=== PATIENT | male | born 1960 | race Caucasian/White ===

== ENCOUNTER 2022-01-04 21:21 | Inpatient (IN) | payer BC ==
[~2022-01-04] VITALS: Ht 185.4 cm; Wt 82.6 kg
--- NOTE | 2022-01-04 21:50 | NUR ---
Patient is a 61-year-old male [id number] with past medical history of CHF who states that he has not been taking his medication for a couple of years due to losing his insurance and he has been having progressively worsening shortness of breath as well as leg swelling for the last 2 weeks, left worse than the right, and came in because at this time he is unable to walk, he does admit to some dizziness when standing up and some intermittent cough without phlegm, denies any fevers, chest pain, palpitations, nausea, vomiting, abdominal pain. Patient is AAO x4, with noticeable shortness of breath, saturation at 95% on 3 lpm via nc. Patient attached to monitor and pulse ox. Will continue to monitor
[2022-01-04] MEDS ORDERED: FUROSEMIDE 40 MG/4 ML VIAL IV ONE (22:00)
[2022-01-04] MEDS ORDERED: FUROSEMIDE 40 MG/4 ML VIAL ONE (22:01)
--- NOTE | 2022-01-04 22:25 | NUR ---
FRONT DESK ADMINISTRATOR AT BEDSIDE FOR CXR
--- NOTE | 2022-01-04 22:40 | NUR ---
TECH AT BEDSIDE FOR VENOUS DOPPLER OF BLE
--- NOTE | 2022-01-04 22:45 | NUR ---
IV LINE ESTABLISHED AT LAC 20G, BLOOD DRAWN AND SENT TO LAB
[2022-01-04 23:17] LABS: BASOPHILS # (AUTO) 0.1 K/uL (0.0-0.2); BASOPHILS % (AUTO) 0.4 % (0.0-2.0); HEMATOCRIT 27 % (39-51); HEMOGLOBIN 8.2 g/dL (13.5-17.5); LYMPHOCYTES # (AUTO) 1.6 K/uL (0.8-4.8); LYMPHOCYTES % (AUTO) 11.2 % (20.0-44.0); MEAN CORPUSCULAR HGB CONC 30 g/dl (31.0-36.0); MEAN CORPUSCULAR VOLUME 86 fL (80-96); MONOCYTES # (AUTO) 0.4 K/uL (0.1-1.30); NEUTROPHILS % (AUTO) 85.4 % (43.0-81.0); PLATELET COUNT (AUTO) 310 K/uL (150-450); RED BLOOD CELL COUNT(AUTO) 3.16 MIL/uL (4.5-6.0)
[2022-01-04 23:52] LABS: CALCIUM, SERUM 8.5 mg/dL (8.5-10.1); CREATININE 2.5 mg/dL (0.6-1.3)
[2022-01-05] VITALS (12 sets, daily range): BP systolic 60–108; BP diastolic 40–59
[2022-01-05] MEDS ORDERED: ONDANSETRON HCL/PF 4 MG/2 ML VIAL IVP PRN
[2022-01-05] MEDS ORDERED: ACETAMINOPHEN 325 MG TABLET PO PRN
[2022-01-05] MEDS ORDERED: ZOLPIDEM TARTRATE 5 MG TABLET PO PRN
[2022-01-05] MEDS ORDERED: Z GUARD REMEDY 4 OZ OINT TP PRN
[2022-01-05] MEDS ORDERED: MAG HYDROX/AL HYDROX/SIMETH 30 ML UDC PO PRN
[2022-01-05] MEDS ORDERED: MAGNESIUM HYDROXIDE 30 ML UDC PO PRN
--- NOTE | 2022-01-05 00:03 | NUR ---
COVID ANTIGEN SWAB COLLECTED AND SENT TO LAB
[2022-01-05 00:05] LABS: ALBUMIN 3.1 g/dL (3.4-5.0); BILIRUBIN,DIRECT 0.6 mg/dL (0.0-0.2); BILIRUBIN,TOTAL 1.6 mg/dL (0.2-1.0); TOTAL PROTEIN, SERUM 7.1 g/dL (6.4-8.2)
[2022-01-05 05:04] LABS: BASOPHILS # (AUTO) 0.1 K/uL (0.0-0.2); BASOPHILS % (AUTO) 1.2 % (0.0-2.0); HEMATOCRIT 25 % (39-51); HEMOGLOBIN 7.8 g/dL (13.5-17.5); LYMPHOCYTES # (AUTO) 1.6 K/uL (0.8-4.8); LYMPHOCYTES % (AUTO) 13.8 % (20.0-44.0); MEAN CORPUSCULAR HGB CONC 31 g/dl (31.0-36.0); MEAN CORPUSCULAR VOLUME 84 fL (80-96); MONOCYTES # (AUTO) 0.3 K/uL (0.1-1.30); MONOCYTES % (AUTO) 2.7 % (2.0-12.0); NEUTROPHILS # (AUTO) 9.7 K/uL (1.8-8.9); NEUTROPHILS % (AUTO) 82.3 % (43.0-81.0); PLATELET COUNT (AUTO) 258 K/uL (150-450); RED BLOOD CELL COUNT(AUTO) 2.95 MIL/uL (4.5-6.0); WHITE BLOOD COUNT (AUTO) 11.7 K/uL (4.3-11.0)
[2022-01-05 05:39] LABS: ALBUMIN 2.8 g/dL (3.4-5.0); BILIRUBIN,DIRECT 0.5 mg/dL (0.0-0.2); BILIRUBIN,TOTAL 1.4 mg/dL (0.2-1.0); CALCIUM, SERUM 8.2 mg/dL (8.5-10.1); CREATININE 2.4 mg/dL (0.6-1.3); MAGNESIUM 2.7 mg/dL (1.8-2.4); PHOSPHORUS 7.5 mg/dL (2.5-4.9); POTASSIUM 4.2 mmol/L (3.5-5.1); TOTAL PROTEIN, SERUM 6.6 g/dL (6.4-8.2)
--- NOTE | 2022-01-05 07:01 | NUR ---
MRSA SWAB COLLECTED AND SENT TO LAB
[2022-01-05 07:12] LABS: THYROID STIMULATING HORMONE 2.956 uIU/mL (0.358-3.74)
[2022-01-05] MEDS ORDERED: PANTOPRAZOLE 40 MG TABLET.DR PO SCH (07:30)
--- NOTE | 2022-01-05 08:17 | NUR ---
[facility] BED 114-1
--- NOTE | 2022-01-05 08:28 | NUR ---
MATRIX INSPECTOR AT BEDSIDE FOR ULTRASOUND.
[2022-01-05] MEDS ORDERED: PANTOPRAZOLE 40 MG TABLET.DR PO ONE (08:33)
[2022-01-05] MEDS ORDERED: FUROSEMIDE 40 MG/4 ML VIAL ONE (08:38)
--- NOTE | 2022-01-05 08:53 | NUR ---
REPORT GIVEN TO AURELIO NASCIMENTO OF MS UNIT
[2022-01-05] MEDS ORDERED: FUROSEMIDE 40 MG/4 ML VIAL IV SCH (09:00)
--- NOTE | 2022-01-05 09:21 | NUR ---
PATIENT TRANSFERRED TO TELE UNIT IN STABLE CONDITION
--- NOTE | 2022-01-05 09:27 | NUR ---
KAYLEE EASTMAN ORDERED BLADDER SCAN..ENDORSED TO SOON RN AWARE OF MS UNIT.
--- NOTE | 2022-01-05 09:37 | NUR ---
BLADDER SCAN SHOWS 315 DR. Lazaro was notified and waiting for returning call back
--- NOTE | 2022-01-05 09:40 | NUR ---
teletype telegrapher note received patient from er with dx acute chf and lt leg cellulitis , alert oriented , admitted under care dr tejas bueno , placed on tele monitor , vs taken , per dr Tejas Bueno placed Corey catch due to more then 300 ml of urine retention noted, body check done , hospital,orientation done, all needs attended , c\o leg pain Tylenol po given, will cont to monitor
--- NOTE | 2022-01-05 11:57 | NUR ---
telecommunications professional note pt not done due to patent condition
[2022-01-05] MEDS ORDERED: MORPHINE SULFATE INJ 4 MG/ML DISP.SYRIN IV PRN (13:00)
--- NOTE | 2022-01-05 13:13 | NUR ---
emergency telecommunications dispatcher note c\o severe pain on lt leg 9\10 scale bp 111/68 saturation 92% morphine 4mg ivp given as ordered, will f\u
--- NOTE | 2022-01-05 13:15 | NUR ---
telephoto engineer note abg done per order dr elida Trivedi,
--- NOTE | 2022-01-05 13:45 | NUR ---
telescope maintenance note bolus 500 ml given as ordered by roopa Trivedi ,dr elida Trivedi notified that saturating 77-84% and patient placed on 15 nonbreather mask
[2022-01-05] MEDS ORDERED: IV NS 0.9% 500 ML IV ONE (14:30)
[2022-01-05] MEDS ORDERED: IV LR 1000 ML 1,000 ML IV PRN (14:30)
[2022-01-05] MEDS ORDERED: VANCOMYCIN HCL 1 GM in IV D5W 260 ML IV ONE (14:30)
--- NOTE | 2022-01-05 14:34 | NUR ---
television newscast director note result of abg reported to dr elida Trivedi , ordered ct abdomen , taken to ct abdomen
--- NOTE | 2022-01-05 14:35 | NUR ---
telehealth coordinator note awaiting for icu bed per dr starr Trivedi need transfer to icu
[2022-01-05] MEDS ORDERED: VANCOMYCIN 1 GM in IV D5W 250ml IV SCH (15:00)
[2022-01-05] MEDS ORDERED: ZOSYN IVPB 2.25 G in IV D5W 50ml IV SCH (16:00)
--- NOTE | 2022-01-05 16:05 | NUR ---
telescope repairer note mid line placed as ordered by Herson hudson gas system operator on rt upper arm ,cont on ivf as ordered
--- NOTE | 2022-01-05 16:37 | NUR ---
LAB CALLED IN LACTIC ACID IS 7.5 DR PAGE WAS NOTIFIED AND NORMAL SALINE 500ML BOLUS TO BE GIVEN
[2022-01-05] MEDS ORDERED: IV NS 0.9% 1,000 ML IV ONE ×2 (17:00→19:30)
--- NOTE | 2022-01-05 17:06 | NUR ---
telesales manager note per order Tejas Trivedi dnp giving bolus 1000 ml ,aware that lactic acid 7.5 Addendum: 01/05/22 at 1718 by ALONDRA WILKINSON RN correction per charge nurse patrick ortiz to telesales manager [address] tejas clements , will f\u
--- NOTE | 2022-01-05 17:37 | NUR ---
telern note called to dr elida bueno notified that bp 71\44 stated that need transfer to icu with Levophed order
[2022-01-05] MEDS ORDERED: PIPERACILLIN /TAZOBACTAM 3.375 G in IV D5W 50 ML IV SCH (18:00)
[2022-01-05] MEDS ORDERED: NOREPINEPHRINE 8 MG in IV NS 0.9% 242 ML IV PRN ×4 (18:00)
--- NOTE | 2022-01-05 18:00 | NUR ---
telephone answering service operator note transferred to icu as ordered by asls protocol , by kasia report given at bedside to amanda hudson
--- NOTE | 2022-01-05 18:00 | NUR ---
RN NOTES RECEIVED PT ON BED, FROM [facility], PT IS A/O X4, ON NONREBREATHER MASK , O2 SAT IN 70'S , SBP IN 70'S, IV SITES CLEAN ,DRY AND INTACT , LEVO DRIP ORDERED.
[2022-01-05 18:23] LABS: BASOPHILS # (AUTO) 0.2 K/uL (0.0-0.2); BASOPHILS % (AUTO) 1.1 % (0.0-2.0); EOSINOPHILS % (AUTO) 0.1 % (0.0-6.0); HEMATOCRIT 26 % (39-51); HEMOGLOBIN 7.7 g/dL (13.5-17.5); LYMPHOCYTES % (AUTO) 10.3 % (20.0-44.0); MEAN CORPUSCULAR HGB CONC 30 g/dl (31.0-36.0); MEAN CORPUSCULAR VOLUME 86 fL (80-96); MONOCYTES # (AUTO) 0.7 K/uL (0.1-1.30); MONOCYTES % (AUTO) 3.5 % (2.0-12.0); NEUTROPHILS # (AUTO) 16.6 K/uL (1.8-8.9); PLATELET COUNT (AUTO) 253 K/uL (150-450); WHITE BLOOD COUNT (AUTO) 19.5 K/uL (4.3-11.0)
[2022-01-05 18:28] LABS: CALCIUM, SERUM 7.2 mg/dL (8.5-10.1); POTASSIUM 4.9 mmol/L (3.5-5.1)
--- NOTE | 2022-01-05 18:30 | NUR ---
RN NOTES SBP IN 120'S, PT IS A/Ox4, STAT ABG ORDERED PER MD ORDER .
[2022-01-05 19:15] LABS: LYMPHOCYTES % (MANUAL) 9 % (16-48); MONOCYTES % (MANUAL) 5 % (0-11.0); NEUTROPHILS % (MANUAL) 86 (42-76)
--- NOTE | 2022-01-05 19:30 | NUR ---
PROBATION OFFICER NOTE RECEIVED PT IN BED AWAKE. A/O X 2-3. ON NRB MASK O2 15 L AND O2 SAT 95%. KEPT HOB ELEVATED. NO DISTRESS OR DISCOMFORT NOTED. NO S/S OF PAIN NOTED. ON TELE SR. F/C INTACT AND PATENT 0 OUTPUT NOTED AT THIS TIME KEPT BILATERAL LOWER LEGS ELEVATED DUE TO SWELLING. LAC IVF INFUSING LR AT 125 ML/HR. PT IS ALSO GETTING LEVA AT 0.2 MCG/KG/MIN. NO S/S OF INFILTRATION NOTED. KEPT HIM DRY AND CLEAN. ALL NEEDS ATTENDED. CONTINUE TO MONITOR HIM.
[2022-01-05] MEDS ORDERED: IOHEXOL-350 100 ML VIAL IV ONE (19:49)
--- NOTE | 2022-01-05 19:50 | NUR ---
DRY CHAIN PULLER NOTE DR HAIRSTON WANTS PT TO GO FOR CT ANGIO CONSENT OBTAINED FOR THE PT. PT WENT DOWN WITH RT.
[2022-01-05] MEDS ORDERED: IV NS 0.9% 250 ML IV ONE (19:51)
[2022-01-05] MEDS ORDERED: SODIUM BICARBONATE SYR 50 MEQ/50 ML DISP.SYRIN IV ONE (20:00)
[2022-01-05] MEDS ORDERED: Sodium Bicarbonate 150 MEQ in IV D5W 1,000 ML IV PRN (20:00)
--- NOTE | 2022-01-05 20:10 | NUR ---
METAL CUT OFF SAW OPERATOR NOTE PT CAME BACK UP FOR CT. NOTED PATENT WITH LOW B/P. INCREASED LEVO TO 0.3 MCG/KG/MIN. CONTINUE TO MONITOR HIM.
[2022-01-05 20:46] LABS: ABG PCO2 12.8 mmHg (35.0-45.0); ABG PH 7.164 (7.350-7.450); ABG PO2 450.3 mmHg (75.0-100.0); AaDO2 249.9 mmHg; COHb 0.2 % (0.5-1.5); MetHb 0.5 % (0.0-1.5); O2Hb 99.3 % (94.0-97.0); SITE, ABG Left Brachial; VENT MODE, BG 15 L NRB
[2022-01-05 20:46] LABS: ABG BASE EXCESS -16.6 mmol/L; ABG OXYGEN SATURATION 99.7 % (92.0-98.5); ABG PCO2 13.6 mmHg (35.0-45.0); ABG PH 7.338 (7.350-7.450); AaDO2 414.4 mmHg; COHb 0.4 % (0.5-1.5); MetHb 0.5 % (0.0-1.5); O2Hb 98.8 % (94.0-97.0); SITE, ABG Left Brachial; VENT MODE, BG NRB MASK
--- NOTE | 2022-01-05 21:45 | NUR ---
TURNTABLE ENGINEER NOTE GI TECH STEFANIE CALLED AND INFORMED PT LACTIC ACID WENT UP TO 12.2. DR CHARLES INFORMED. GAVE NEW ORDER TO REPEAT AFTER 3 HRS.
--- NOTE | 2022-01-05 23:15 | NUR ---
INFORMED HOSPITALIST STEW THAT PT BP IS STILL LOW WITH BP 57/31 HR 94 ON MAX LEVOPHED WITH ORDER TO START NEOSYNPHRINE TO TITRATE PER PROTOCOL
[2022-01-05] MEDS ORDERED: PHENYLEPHRINE 100 MG in IV NS 0.9% 240 ML IV PRN (23:30)
--- NOTE | 2022-01-05 23:35 | NUR ---
CALLED ER MD FOR PT TO BE INTUBATED, DUE TO PT SPO2 IS ON LOW 78% AND PT BECOME MORE UNRESPONSIVE PT STILL HAVE PULSE VIA CAROTID AND FEMORAL
--- NOTE | 2022-01-05 23:54 | NUR ---
METER/RELAY TECHNICIAN NOTE WHILE ER MD PRESENT AT BED SIDE WITH RT TEAM, CODE BLUE ANNOUNCED DUE TO NO PULSE AND CPR STARTED.
--- NOTE | 2022-01-06 00:18 | NUR ---
LEAD APPLICATIONS DEVELOPER NOTE CODE BLUE ENDED. ER DR Letty PHELAN PRONOUNCED PT AT THIS TIME. CHARGE NURSE, NURSING STEAM DRIER OPERATOR PRESENT IN THE ROOM.
--- NOTE | 2022-01-06 00:58 | NUR ---
WIRE WORKER NOTE TRY TO REACH RESPONSIBLE [employer] BUT NO ONE PICKUP THE PHONE. LEFT A MESSAGE.
--- NOTE | 2022-01-06 01:15 | NUR ---
MANAGER NEWS NOTE POST CARE GIVEN. AND BODY SENT TO [facility]. Addendum: 01/06/22 at 030 by SRINATH OLIVAREZ RN body was taken [facility] at [id number]
[2022-01-06] MEDS ORDERED: SODIUM BICARBONATE SYR 50 MEQ/50 ML DISP.SYRIN IV ONE (02:59)
[2022-01-06] MEDS ORDERED: ETOMIDATE 2 MG/ML VIAL IV ONE (02:59)
[2022-01-06] MEDS ORDERED: ATROPINE SULFATE 1 MG/10 ML DISP.SYRIN IV ONE (02:59)
[2022-01-06] MEDS ORDERED: EPINEPHRINE (1:10,000) SYRINGE 1 MG/10 ML DISP.SYRIN IVP ONE (02:59)
== END 2022-01-06 03:00 | DRG 871 ==
LOC: ER 21:28 → TRANSITION 01-05 03:31 → TELE1 01-05 09:05 → ICU 01-05 18:04
PROVIDERS: ADMIT Student in an Organized Health Care Education/Training Program; ATTEND Nurse Practitioner Acute Care
PROC: 0BH18EZ Insertion of Endotracheal Airway into Trachea, Via Natural or Artificial Opening Endoscopic (ICD-10-PCS; principal; 2022-01-05)
PROC: 05H633Z Insertion of Infusion Device into Left Subclavian Vein, Percutaneous Approach (ICD-10-PCS; 2022-01-05)
PROC: B547ZZA Ultrasonography of Left Subclavian Vein, Guidance (ICD-10-PCS; 2022-01-05)
PROC: 5A12012 Performance of Cardiac Output, Single, Manual (ICD-10-PCS; 2022-01-06)
DX: A41.9 Sepsis, unspecified organism (principal); N17.0 Acute kidney failure with tubular necrosis; G93.41 Metabolic encephalopathy; J96.01 Acute respiratory failure with hypoxia; E44.1 Mild protein-calorie malnutrition; E87.2 Acidosis; I42.9 Cardiomyopathy, unspecified; R57.0 Cardiogenic shock; E83.39 Other disorders of phosphorus metabolism; I11.0 Hypertensive heart disease with heart failure; D64.9 Anemia, unspecified; E88.09 Other disorders of plasma-protein metabolism, not elsewhere classified; I50.811 Acute right heart failure; E80.6 Other disorders of bilirubin metabolism; R74.01 Elevation of levels of liver transaminase levels; Z68.24 Body mass index [BMI] 24.0-24.9, adult; E83.41 Hypermagnesemia; I27.20 Pulmonary hypertension, unspecified; R53.1 Weakness; Z20.822 Contact with and (suspected) exposure to COVID-19; Z91.14 Patient's other noncompliance with medication regimen; I27.21 Secondary pulmonary arterial hypertension
CPT/HCPCS: 36410; 36415; 36600; 71045-TC; 80048-TC; 80076-TC; 83605-TC; 83735-TC; 83880; 84100-TC; 84443-TC; 84484-TC; 85025-TC; 85730-TC; 87081-TC; 92950-TC; 93307-TC; 93971-TC; A6403; C9803; G0378; J0171; J0461; J1940; J2270; J2405; J2543; J3370; J3490; J7050; J7060; J7120; Q9967